=== PATIENT | female | born 1955 | race Caucasian/White ===

== ENCOUNTER 2018-07-26 10:25 | Day surgery (SDC) | payer MEDICARE, OTHER ==
[~2018-07-26] VITALS: Ht 149.9 cm; Wt 108.9 kg
[~2018-07-26 10:25] MED LIST: BENL120I IV; CRES20TA PO; DRIS50003 PO; GABA-843 PO; HYDR12CA PO; IMUR50TA7 PO; INSULANT SC; INSUR SC; LEVO175T2 PO; LEVO200T4 PO; LOSA50TA88 PO; MEDR1TAB PO; METF10004 PO; NS 1,000 ML IV ONE; OXYB15TA PO; PLAV1TAB2 PO; PROC60TA PO; REGL10TA6 PO; UROCTAB3 PO; VASC1CAP2 PO
[2018-07-26] MEDS ORDERED: fentaNYL 100 MCG/2 ML INJECTION (J3010) As Ordered ONE (11:17)
[2018-07-26] MEDS ORDERED: LIDOCAINE 2% INJ 100 MG/5 ML SDV (FOR ANES.) As Ordered ONE (11:18)
[2018-07-26] MEDS ORDERED: PROPOFOL 200 MG/20 ML VIAL As Ordered ONE (11:18)
[2018-07-26] MEDS ORDERED: CETACAINE SPRAY 5GM As Ordered ONE (12:40)
--- NOTE | 2018-07-26 12:54 | ROOR ---
Patient Name: Gil Maguire Procedure Date: 07/26/2018 12:37 PM Date of : 1955 Age: 63 Room: [facility] Gender: Female Note Status: Finalized Procedure: Upper GI endoscopy Indications: Esophageal reflux, Failure to respond to medical treatment, Gastroparesis Providers: Naga MEDELLIN MD Referring MD: VALERIA Del Rosario Requesting Provider: Medicines: Monitored Anesthesia Care Complications: No immediate complications. Procedure: Pre-Anesthesia Assessment: - The heart rate, respiratory rate, oxygen saturations, blood pressure, adequacy of pulmonary ventilation, and response to care were monitored throughout the procedure. The Endoscope was introduced through the mouth, and advanced to the second part of duodenum. The upper GI endoscopy was accomplished without difficulty. The patient tolerated the procedure well. Findings: The esophagus was normal. The stomach was normal. (large volume) The examined duodenum was normal. Impression: - Normal esophagus. - Normal stomach. - Normal examined duodenum. - No specimens collected. Recommendation: - Observe patient's clinical course. - Gastroparesis diet: - Eat smaller, more frequent meals throughout the day. - Low fat diet. - Liquid/soft foods are tolerated better than solid foods. - Low fiber/well cooked vegetables are tolerated better than high fiber/fibrous foods/raw vegetables. - Avoid medications that inhibit gastric/intestinal motility such as narcotic medications. Naga Medellin MD Naga MEDELLIN MD 07/26/2018 12:53:49 PM This report has been signed electronically. Number of Addenda: 0 Note Initiated On: 07/26/2018 12:37 PM Estimated Blood Loss: Estimated blood loss: none.
[2018-07-26 13:20] VITALS: BP 126/63
== END 2018-07-26 13:21 | disposition home or self-care (01) ==
LOC: M OPP 10:25
PROVIDERS: ATTEND Internal Medicine Gastroenterology
DX: K21.9 Gastro-esophageal reflux disease without esophagitis (principal); K31.84 Gastroparesis; E11.9 Type 2 diabetes mellitus without complications; G47.33 Obstructive sleep apnea (adult) (pediatric); J45.909 Unspecified asthma, uncomplicated; M79.7 Fibromyalgia; G43.909 Migraine, unspecified, not intractable, without status migrainosus; Z88.2 Allergy status to sulfonamides; Z88.6 Allergy status to analgesic agent; Z88.7 Allergy status to serum and vaccine; Z88.8 Allergy status to other drugs, medicaments and biological substances; Z91.030 Bee allergy status; Z91.048 Other nonmedicinal substance allergy status; Z79.84 Long term (current) use of oral hypoglycemic drugs; Z79.899 Other long term (current) drug therapy; Z80.3 Family history of malignant neoplasm of breast; Z83.3 Family history of diabetes mellitus
CPT/HCPCS: 43235; J3010

== ENCOUNTER 2020-10-18 07:33 | Day surgery (SDC) | payer MEDICARE ==
[~2020-10-18] VITALS: Ht 144.8 cm; Wt 110.7 kg
[~2020-10-18 07:33] MED LIST changes: +B-122500 PO; +BENL200I; +CLOP75TA2; -CRES20TA PO; +CRES20TA2 PO; +EPIN0.3I11; +FAMO1TAB25 PO; +GABA-282 PO; -GABA-843 PO; +IMUR50TA10 PO; -IMUR50TA7 PO; +MYRB25TA; +NOVOINJ3; +OMEG1CAP85; -OXYB15TA PO; +OXYB15TA14 PO; +OZEM2INJ; +PANT40TA29; +PRED5PAK2 PO; +SOLI10TA; +TRES1INJ2 SQ; +VITA50005
[2020-10-18] MEDS ORDERED: LIDOCAINE 2% 100MG/5ML SDV (FOR ANES.) As Ordered ONE (08:16)
[2020-10-18] MEDS ORDERED: propofoL 200 MG/20 ML VIAL As Ordered ONE (08:16)
[2020-10-18] MEDS ORDERED: fentaNYL 100 MCG/2 ML INJECTION (J3010) As Ordered ONE (08:17)
--- NOTE | 2020-10-18 09:07 | ROOR ---
Patient Name: Gil Maguire Procedure Date: 10/18/2020 8:50 AM Date of : 1955 Age: 65 Room: [facility] Gender: Female Note Status: Finalized Procedure: Upper GI endoscopy Indications: Epigastric abdominal pain, Gastroparesis Providers: Naga Mack MD Referring MD: VALERIA De lRosario Requesting Provider: Medicines: Monitored Anesthesia Care Complications: No immediate complications. Procedure: Pre-Anesthesia Assessment: - The heart rate, respiratory rate, oxygen saturations, blood pressure, adequacy of pulmonary ventilation, and response to care were monitored throughout the procedure. The Endoscope was introduced through the mouth, and advanced to the second part of duodenum. The upper GI endoscopy was accomplished without difficulty. The patient tolerated the procedure well. Findings: The esophagus was normal. The stomach was normal. The examined duodenum was normal. Impression: - Normal esophagus. - Normal stomach. - Normal examined duodenum. - No specimens collected. Recommendation: - Gastroparesis diet: - Eat smaller, more frequent meals throughout the day. - Low fat diet. - Liquid/soft foods are tolerated better than solid foods. - Low fiber/well cooked vegetables are tolerated better than high fiber/fibrous foods/raw vegetables. - Avoid medications that inhibit gastric/intestinal motility such as narcotic medications. Procedure Code(s): --- Professional --- 53111, Esophagogastroduodenoscopy, flexible, transoral; diagnostic, including collection of specimen(s) by brushing or washing, when performed (separate procedure) Diagnosis Code(s): --- Professional --- K31.84, Gastroparesis R10.13, Epigastric pain CPT copyright 2019 [employer]. All rights reserved. The codes documented in this report are preliminary and upon energy director review may be revised to meet current compliance requirements. Naga Mack MD Naga Mack MD 10/18/2020 9:07:03 AM Electronically signed by Naga Mack MD Number of Addenda: 0 Note Initiated On: 10/18/2020 8:50 AM Estimated Blood Loss: Estimated blood loss: none.
--- NOTE | 2020-10-18 09:42 | ROOR ---
Patient Name: Gil Maguire Procedure Date: 10/18/2020 8:52 AM Date of : 1955 Age: 65 Room: [facility] Gender: Female Note Status: Finalized Procedure: Colonoscopy Indications: Change in bowel habits, Constipation, Diarrhea Providers: Naga Mack MD Referring MD: VALERIA Del Rosario Requesting Provider: Medicines: Monitored Anesthesia Care Complications: No immediate complications. Procedure: Pre-Anesthesia Assessment: - The heart rate, respiratory rate, oxygen saturations, blood pressure, adequacy of pulmonary ventilation, and response to care were monitored throughout the procedure. The Colonoscope was introduced through the anus and advanced to the cecum, identified by appendiceal orifice and ileocecal valve. The colonoscopy was somewhat difficult due to inadequate bowel prep. Successful completion of the procedure was aided by lavage. The patient tolerated the procedure well. The quality of the bowel preparation was fair. Findings: The perianal and digital rectal examinations were normal. The entire examined colon appeared normal on direct and retroflexion views. Biopsies for histology were taken with a cold forceps for evaluation of microscopic colitis. Impression: - Preparation of the colon was suboptimal/fair. - The entire examined colon is normal on direct and retroflexion views. - Biopsies were taken with a cold forceps for evaluation of microscopic colitis. Recommendation: - Telephone endoscopist for pathology results in 2 weeks. - Resume Plavix (clopidogrel) at prior dose tomorrow. - Discontinue Questran (cholestyramine). - Miralax 1 capful (17 grams) in 8 ounces of water PO BID. - (the script was sent to your pharmacy on file) - Await pathology report - I will send you a script for additional stool studies to do. Call me 1 week after stool studies complete for report Procedure Code(s): --- Professional --- 05453, Colonoscopy, flexible; with biopsy, single or multiple Diagnosis Code(s): --- Professional --- R19.7, Diarrhea, unspecified K59.00, Constipation, unspecified R19.4, Change in bowel habit CPT copyright 2019 [employer]. All rights reserved. The codes documented in this report are preliminary and upon remote inpatient coder review may be revised to meet current compliance requirements. Naga Mack MD Naga Mack MD 10/18/2020 9:42:13 AM Electronically signed by Naga Mack MD Number of Addenda: 0 Note Initiated On: 10/18/2020 8:52 AM Estimated Blood Loss: Estimated blood loss: none.
[2020-10-18 10:02] VITALS: BP 129/60
== END 2020-10-18 10:04 | disposition home or self-care (01) ==
LOC: M OPP 07:33
PROVIDERS: ATTEND Internal Medicine Gastroenterology
DX: K59.00 Constipation, unspecified (principal); R19.7 Diarrhea, unspecified; K31.84 Gastroparesis; R10.13 Epigastric pain; Z79.4 Long term (current) use of insulin; Z79.899 Other long term (current) drug therapy; Z88.2 Allergy status to sulfonamides; Z88.5 Allergy status to narcotic agent; Z88.7 Allergy status to serum and vaccine; Z88.8 Allergy status to other drugs, medicaments and biological substances; Z91.030 Bee allergy status; Z91.048 Other nonmedicinal substance allergy status
CPT/HCPCS: 43235; 45380; 88305; J3010